=== PATIENT | male | born 2000 | race African-American/Black ===

== ENCOUNTER 2023-11-01 11:41 | Emergency (ER) | payer SELFPAY ==
[~2023-11-01] VITALS: Ht 180.3 cm; Wt 59.0 kg
[2023-11-01] VITALS (8 sets, daily range): BP systolic 114–129; BP diastolic 69–88
[2023-11-01] MEDS ORDERED: KETOROLAC TROMETHAMINE 30 MG/ML SDV IV ONE (12:20)
[2023-11-01] MEDS ORDERED: SODIUM CHLORIDE 0.9% 1,000 ML IV ONE (12:20)
[2023-11-01] MEDS ORDERED: ONDANSETRON HCl 4 MG/2 ML SDV IV ONE (12:20)
[2023-11-01 13:04] LABS: EOS% 0.2 % (0-8); HEMATOCRIT 48.1 % (39.0-50.0); IMMATURE GRANULOCYTES 0.1 % (0.0-5.0); LYMPH% 4.8 % (15-41); MEAN CELL VOLUME 89.7 fL CALC (80.0-100.0); MEAN CORPUSCULAR HGB 31.7 pG CALC (26.0-32.0); MEAN CORPUSCULAR HGB CONC 35.3 g/dL CAL (32.0-36.0); MONO% 3.8 % (2-13); NEUT# 11.66 thou/uL (1.82-7.42); NEUT% 91.1 % (42-76); RED BLOOD COUNT 5.36 mill/uL (4.70-6.10); RED CELL DISTRI WIDTH 11.7 % (11.5-15.5)
[2023-11-01 13:20] LABS: BILIRUBIN, TOTAL 1.7 mg/dL (0.2-1.3); CREATININE 0.8 mg/dL (0.7-1.3); POTASSIUM 3.8 mmol/l (3.5-5.1); TOTAL PROTEIN 7.8 g/dL (6.3-8.2)
[2023-11-01 15:17] LABS: URINE BLOOD DIPSTICK Trace-intact (NEGATIVE); URINE GLUCOSE - DIPSTICK Negative (NEGATIVE); URINE KETONE 80 mg/dL (NEGATIVE); URINE LEUK ESTERASE Negative (NEGATIVE); URINE NITRITE - DIPSTICK Negative (Negative); URINE PROTEIN - DIPSTICK Trace mg/dL (NEG-TRACE); URINE SPECIFIC GRAVITY >=1.030
[2023-11-01 15:20] LABS: URINE COLOR Yellow
[2023-11-01] MEDS ORDERED: ZOFRAN4 MG/TAB PO (15:21)
== END 2023-11-01 15:42 | disposition home or self-care (01) | DRG 392 ==
LOC: ED 11:41
PROVIDERS: Family Medicine
DX: R11.2 Nausea with vomiting, unspecified (principal); R10.31 Right lower quadrant pain; R10.32 Left lower quadrant pain